=== PATIENT | female | born 1990 | race Caucasian/White ===

== ENCOUNTER 2018-04-29 21:47 | Emergency (ER) | payer MEDICAID, OTHER ==
[~2018-04-29] VITALS: Ht 157.5 cm; Wt 93.7 kg
[~2018-04-29 21:47] MED LIST: LABE100T39 GTB; PREN1TAB17 PO
[2018-04-29 21:56] VITALS: Ht 157.5 cm; Wt 93.7 kg
[2018-04-29] MEDS ORDERED: ONDANSETRON 4 MG INJ IV STA (22:18)
--- NOTE | 2018-04-29 22:25 | ERD ---
ER Documentation Chief Complaint Chief Complaint fever and dysuria x 4 days HPI This is a 28-year-old female who presents to emergency department with complaints of dysuria and fever for about 4 days. Also complains of bilateral flank pain for about 2 days. LMP: 04/06/2018. A0. Denies headache, head injury, loss of consciousness, dizziness, neck pain, neck stiffness, throat pain, difficulty swallowing, difficulty breathing lying flat, shoulder pain, chest pain, abdominal pain, nausea, vomiting, constipation, diarrhea, or possibility being , loss of bowel and bladder control, trauma, injury, falls, difficulty walking due to pain, numbness or tingling sensation, calf pain, recent travel, recent major surgery in the last 3 weeks, calf pain, recent long travel, recent exposure to any illness, recent antibiotic use in the last 3 months, fever, chills, seizures. Past medical history: Denies. Surgical history: x2. Social: Denies smoking, use of alcoholic beverages, use of illegal drugs. ROS All systems reviewed and are negative except as per history of present illness. Medications Home Meds Active Scripts Ibuprofen* (Motrin*) 800 Mg Tab, 800 MG PO Q6H PRN for PAIN AND OR ELEVATED TEMP, #30 TAB Prov:JESIANAYDOLORES Jo-Ann 04/30/18 Acetaminophen* (Tylophen*) 500 Mg Capsule, 1 CAP PO Q6H PRN for PAIN AND OR ELEVATED TEMP, #20 CAP Prov:BETTYJORGE LUISANAYDOLORES Jo-Ann 04/30/18 Ondansetron Hcl* (Zofran*) 4 Mg Tablet, 4 MG PO Q8H PRN for NAUSEA AND/OR VOMITING, #30 TAB Prov:BETTYJORGE LUISANAYDOLORES Jo-Ann 04/30/18 Ferrous Sulfate* (Ferrous Sulfate*) 325 Mg Tabec, 325 MG PO DAILY, #30 TAB Prov:BETTYJORGE LUISFRANCISCO Busch 04/30/18 Cephalexin* (Keflex*) 500 Mg Capsule, 500 MG PO TID for 7 Days, CAP Prov:BETTYJORGE LUISANAYDOLORES Jo-Ann 04/30/18 Reported Medications Labetalol Hcl (Labetalol Hcl) 100 Mg Tab, 100 MG GTB BID 03/30/13 Vit-Iron Fumarate-FA ( Tablet) 1 Each Tablet, 1 EACH PO DAILY 02/19/13 Allergies Allergies: Coded Allergies: No Known Allergies (Verified Allergy, 04/01/13) No Known Drug Allergies (Verified Adverse Reaction, Unknown, 02/11/12) Uncoded Allergies: SHRIMP (Allergy, Intermediate, 03/15/13) NOT KNOW ALLERGIES (Allergy, Unknown, 02/19/13) PMhx/Soc History of Surgery: Yes (GALLBLADDER, c/s x2) Anesthesia Reaction: No Hx Neurological Disorder: No Hx Respiratory Disorders: No Hx Cardiac Disorders: No Hx Psychiatric Problems: No Hx Miscellaneous Medical Probl: No Hx Alcohol Use: No Hx Substance Use: No Hx Tobacco Use: No Smoking Status: Never smoker Physical Exam Vitals Vital Signs Date Temp Pulse Resp B/P (MAP) Pulse Ox O2 O2 Flow FiO2 Time Delivery Rate 04/30/18 100.3 109 18 124/65 98 Room Air 02:45 (84) 04/30/18 99.8 105 18 132/63 98 Room Air 01:11 (86) 04/29/18 101.6 132 18 141/88 99 21:56 (105) Physical Exam Const: No acute distress Head: Atraumatic Eyes: Normal Conjunctiva ENT: Normal External Ears, Nose and Mouth. Neck: Full range of motion. No meningismus. No nuchal rigidity. No signs of meningeal irritation. Resp: Clear to auscultation bilaterally Cardio: Regular rate and rhythm, no murmurs Abd: Soft, non tender, non distended. Normal bowel sounds. Negative Esquivel sign. Negative Justice sign (heel jar test). Negative psoas sign. Negative R ovsing sign. Skin: No petechiae or rashes. No vesicular lesions. No skin tenting. No signs of dehydration. Back: No midline tenderness. Bilateral CVA tenderness. Ext: No cyanosis, or edema Neur: Awake and alert. No neurological deficits. Psych: Normal Mood and Affect Result Diagram: 04/29/18223404/29/182234 Results 24 hrs Laboratory Tests Test 04/29/18 22:35 04/29/18 22:46 04/29/18 22:52 04/30/18 02:20 White Blood 7.2 10^3/ul Count Red Blood Count 4.51 10^6/ul Hemoglobin 9.9 g/dl Hematocrit 32.4 % Mean 71.8 fl Corpuscular Volume Mean 22.0 pg Corpuscular Hemoglobin Mean 30.6 g/dl Corpuscular Hemoglobin Conc ent Red Cell 17.0 % Distribution Width Platelet Count 209 10^3/UL Mean Platelet 10.3 fl Volume Immature 0.700 % Granulocytes % Neutrophils % 81.6 % Lymphocytes % 11.2 % Monocytes % 6.4 % Eosinophils % 0.0 % Basophils % 0.1 % Nucleated Red 0.0 /100WBC Blood Cells % Immature 0.050 10^3/ul Granulocytes # Neutrophils # 5.9 10^3/ul Lymphocytes # 0.8 10^3/ul Monocytes # 0.5 10^3/ul Eosinophils # 0.0 10^3/ul Basophils # 0.0 10^3/ul Nucleated Red 0.0 10^3/ul Blood Cells # Prothrombin 13.2 Sec Time Prothrombin 1.0 Time Ratio INR 0.99 International Normalized Rati o Activated 29.6 Sec Partial Thrombo plast Time Urine Color YELLOW Urine Clarity SLIGHTLY CLOUDY Urine pH 6.0 Urine Specific 1.011 [place] Urine Ketones NEGATIVE mg/dL Urine Nitrite NEGATIVE mg/dL Urine Bilirubin NEGATIVE mg/dL Urine NEGATIVE mg/dL Urobilinogen Urine Leukocyte 1+ Chaz/ul Esterase Urine 3 /HPF Microscopic RBC Urine 50 /HPF Microscopic WBC Urine Squamous FEW /HPF Epithelial Cell s Urine Bacteria MODERATE /HPF Urine 1+ mg/dL Hemoglobin Urine Glucose NEGATIVE mg/dL Urine Total 1+ mg/dl Protein Sodium Level 142 mmol/L Potassium Level 3.6 mmol/L Chloride Level 100 mmol/L Carbon Dioxide 26 mmol/L Level Anion Gap 16 Blood Urea 13 mg/dl Nitrogen Creatinine 0.84 mg/dl Est Glomerular > 60 mL/min Filtrat Rate mL/min Glucose Level 137 mg/dl Calcium Level 9.2 mg/dl Total Bilirubin 0.1 mg/dl Direct 0.00 mg/dl Bilirubin Indirect 0.1 mg/dl Bilirubin Aspartate Amino 23 IU/L Transf (AST/SGO T) Alanine 32 IU/L Aminotransferas e (ALT/SGPT) Alkaline 124 IU/L Phosphatase Troponin I < 0.012 ng/ml Total Protein 6.3 g/dl Albumin 3.5 g/dl Globulin 2.80 g/dl Albumin/Globuli 1.25 n Ratio Amylase Level 78 U/L Lipase 138 U/L POC Venous 1.9 mmol/L 0.8 mmol/L Lactate POC Beta HCG, NEGATIVE Qualitative Current Medications Medications Dose Sig/Yung Start Time Status Last (Trade) Ordered Route PRN Stop Time Admin Dose Reason Admin Sodium 1,000 ml @ Q1H ONCE 04/29/18 DC 04/29/18 Chloride 1,000 mls/hr IV 22:30 22:46 04/29/18 22:51 Ondansetron 4 mg ONCE STAT 04/29/18 DC 04/29/18 HCl (Zofran IV 22:18 22:46 Inj) 04/29/18 22:20 Sodium 2,810 ml BOLUS OVER 3 04/29/18 DC 04/29/18 Chloride HOURS STAT 22:50 22:54 (NS) IV* 04/29/18 22:52 Ceftriaxone 50 ml @ ONCE ONCE 04/30/18 DC 04/30/18 Sodium 100 mls/hr IVPB 00:30 01:07 04/30/18 00:59 Ketorolac 30 mg ONCE STAT 04/30/18 DC 04/30/18 Tromethamine IV 02:25 02:42 (Toradol) 04/30/18 02:27 Procedures/MDM Diagnostic tests: EKG: Sinus tachycardia with a ventricular rate of 116 bpm. No STEMI. Read by supervising physician. POC urine : Negative. Urinalysis: UTI. Culture urine: Sent. Lactic acid: 1.9. Second lactic acid: 0.8. Blood cultures x2: Sent. Blood works: Reviewed. Renal ultrasound: Sonographically unremarkable right kidney. Sonographically unremarkable left kidney. Sonographically unremarkable urinary bladder. Treatment: Saline lock. Normal saline IV bolus. Zofran IV. Re-evaluation: No episode of emesis here in the emergency department. No abdominal tenderness. Negative Esquivel sign. Negative Cornel sign (heel jar test). Negative psoas sign. Negative Rovsing sign. Ambulatory with steady gait without pain to abdomen. No CVA tenderness. Stated that she feels much better at this time and that she is ready to go home. Differential diagnosis I have low suspicion for sepsis, pancreatitis, cholecystitis, diverticulitis, bowel obstruction, appendicitis, abscess formation, nephrolithiasis, obstructing kidney stones. Final diagnosis: UTI. Back pain. Mild anemia. Prescription: Keflex. Motrin. Tylenol. Zofran. Ferrous sulfate. Follow-up with PCP in the next 24-48 hours. Come back here in the emergency dep artment for any new symptoms or any worsening symptoms. All questions and concerns were answered. Patient and family members verbalized understanding and agreed with plan of care. Hemodynamically stable on discharge. Departure Diagnosis: Primary Impression: UTI (urinary tract infection) Additional Impression: Back pain Condition: Stable Additional Instructions: Follow-up with PCP in the next 24-48 hours. Come back here in the emergency department for any new symptoms or any worsening symptoms. FRANCISCO DENNISON Apr 29, 2018 22:25
[2018-04-29] MEDS ORDERED: SOD CHLORIDE 0.9% 1,000 ML IV ONE (22:30)
[2018-04-29] MEDS ORDERED: SODIUM CHLORIDE 0.9% 1L BAG IV* STA (22:50)
[2018-04-30] MEDS ORDERED: CEFTRIAXONE 1 GM/50 ML (PMX) 50 ML IVPB ONE (00:30)
[2018-04-30] MEDS ORDERED: KETOROLAC 30 MG INJ IV STA (02:25)
[2018-04-30] MEDS ORDERED: ONDA4TAB8 PO (02:29)
[2018-04-30] MEDS ORDERED: FER325 PO (02:29)
[2018-04-30] MEDS ORDERED: CEPH-443 PO (02:29)
[2018-04-30] MEDS ORDERED: ACET500C5 PO (02:29)
[2018-04-30] MEDS ORDERED: IBUP800T48 PO (02:30)
[2018-04-30 02:45] VITALS: BP 124/65; PULSE 109; RESP 18
== END 2018-04-30 02:57 | disposition home or self-care (01) ==
LOC: FTE 21:47
DX: N39.0 Urinary tract infection, site not specified (principal); M54.9 Dorsalgia, unspecified; R10.9 Unspecified abdominal pain
CPT/HCPCS: 76775; 80053; 81001; 81025; 82150; 83605; 83690; 84484; 85025; 85610; 85730; 87040; 87086; 93005; 96361; 96365; 96366; 96375; J0696; J1885; J2405; J7030; Z7502